=== PATIENT | female | born 1955 | race American Indian/Alaskan Native ===

== ENCOUNTER 2016-04-27 09:14 | Emergency (ER) | payer BC ==
[2016-04-27] MEDS: VALIUM PO ONE (10:26)
[2016-04-27] MEDS: TORADOL IM ONE (10:26)
--- NOTE | 2016-04-27 11:26 | Emergency Department Report ---
HPI - General Chief Complaint: Neck Pain/Injury Time Seen by Provider: 04/27/16 10:00 - HPI HPI: 60-year-old female with past medical history of hypertension, presents today with neck pain and possible neck vein distention 1 month. Patient states that she was diagnosed with C-spine sprain and left shoulder sprain one month ago and did physical therapy who pushed her too hard. She's had the neck pain and the vein distention since. Describes her pain as 8 out of 10 pain that comes and goes. She tried ibuprofen without relief. Denies any fever, chills, nausea , vomiting, chest pain, shortness of breath, abdominal pain. ED Past Medical Hx - Past Medical History Previous Medical History?: Yes Hx Hypertension: Yes Additional medical history: Cervical sprain and left shoulder sprain - Surgical History Past Surgical History?: No - Social History Smoking Status: Never Smoker Substance Use Type: Prescribed - Medications Home Medications: Home Medications Medication Instructions Recorded Confirmed Last Taken Type Cyclobenzaprine [Flexeril] 10 mg PO TID PRN #20 tablet 04/27/16 Unknown Rx Ibuprofen [Motrin 600 MG tab] 600 mg PO Q8H PRN #30 tablet 04/27/16 Unknown Rx ED Review of Systems ROS: Stated complaint: LT EAR PAIN/ SWOLLEN VEIN IN NECK Other details as noted in HPI Constitutional: denies: chills, fever, malaise Eyes: denies: eye pain ENT: denies: ear pain, throat pain, congestion Respiratory: denies: cough, shortness of breath, wheezing Cardiovascular: denies: chest pain, palpitations Endocrine: no symptoms reported Gastrointestinal: denies: abdominal pain, nausea, vomiting Neurological: denies: headache, weakness Physical Exam - Physical Exam Vital Signs: Vital Signs 04/27/16 04/27/16 09:24 10:26 Temperature 98.3 F Pulse Rate 94 H Respiratory 20 16 Rate Blood Pressure 146/90 O2 Sat by Pulse 100 Oximetry Physical Exam: GENERAL: The patient is well-developed and well-nourished. Patient is in NAD. HEAD: Normocephalic. Atraumatic. EYES: PERRL. NOSE: Normal nasal mucosa with no nasal discharge. THROAT: No erythema, swelling or exudates. NECK: No midline or paraspinal tenderness to palpation. Tenderness to palpation with the left sternocleidomastoid. Left-sided neck veins appear more prominent than the right side. No carotid bruits. CHEST/LUNGS: Clear to auscultation throughout. HEART/CARDIOVASCULAR: Regular rate and rhythm. No murmurs, rubs or gallops. ABDOMEN: Abdomen is soft, nontender. Bowel sounds normoactive. No guarding or rebound tenderness. EXTREMITIES: Peripheral pulses intact. Capillary refill less than 2 seconds. NEURO: Alert and oriented x 3. Normal gait. Symmetrical strength and sensation. GCS score of 15. ED Course Vital Signs 04/27/16 04/27/16 09:24 10:26 Temperature 98.3 F Pulse Rate 94 H Respiratory 20 16 Rate Blood Pressure 146/90 O2 Sat by Pulse 100 Oximetry ED Medical Decision Making - Lab Data Vital Signs 04/27/16 04/27/16 04/27/16 09:24 10:26 11:33 Temperature 98.3 F Pulse Rate 94 H 83 Respiratory 20 16 20 Rate Blood Pressure 146/90 Blood Pressure 142/87 [Left] O2 Sat by Pulse 100 98 Oximetry - Medical Decision Making 60-year-old female presents today with neck pain and neck vein distention. The patient was given Valium and Toradol and reported symptomatic relief. She has been provided with a referral for engineering analyst. Patient is in no acute distress at this time. She will be discharged home and is encouraged to follow up with a primary care provider. She will be sent home on Flexeril and Motrin and is encouraged to return to the emergency room for any worsening symptoms. Critical care attestation.: If time is entered above; I have spent that time in minutes in the direct care of this critically ill patient, excluding procedure time. ED Disposition Clinical Impression: Muscle strain, Neck pain Disposition: DISCHARGED TO HOME OR SELFCARE Is pt being admited?: No Does the pt Need Aspirin: No Condition: Stable Instructions: Muscle Strain (ED) Additional Instructions: Follow-up with primary care provider and engineering analyst. Return to the emergency department if symptoms worsen. Prescriptions: Cyclobenzaprine [Flexeril] 10 mg PO TID PRN #20 tablet PRN Reason: Muscle Spasm Ibuprofen [Motrin 600 MG tab] 600 mg PO Q8H PRN #30 tablet PRN Reason: Pain Referrals: PRIMARY MD ANAYELI [Primary Care Provider] - 3-5 Days GERMAINE TAVAREZ MD [Staff Physician] - 3-5 Days ODEMUYIWA,ABDULFATAI O, MD [Staff Physician] - 3-5 Days Forms: Accompanied Note, Work/School Release Form(ED) Time of Disposition: 11:24
[2016-04-27 11:34] VITALS: BP 142/87
== END 2016-04-27 11:41 | disposition home or self-care (01) ==
LOC: ED 09:14
DX: S16.1XXA Strain of muscle, fascia and tendon at neck level, initial encounter (principal); I10 Essential (primary) hypertension; X58.XXXA Exposure to other specified factors, initial encounter; Y93.89 Activity, other specified; Y92.89 Other specified places as the place of occurrence of the external cause; Y99.8 Other external cause status
CPT/HCPCS: 96372; 99282; J1885